=== PATIENT | male | born 1955 | race Caucasian/White ===

== ENCOUNTER → 2016-09-09 08:39 | Outpatient (CLI) | payer MEDICARE, BC | END | disposition home or self-care (01) | LOC: D.RAD 08:39 | DX: M54.2 Cervicalgia (principal) ==

== ENCOUNTER → 2017-02-01 09:09 | Outpatient (CLI) | payer MEDICARE, BC | END | disposition home or self-care (01) | LOC: D.US 09:09 → D.NM 10:00 | DX: R10.11 Right upper quadrant pain (principal); K21.9 Gastro-esophageal reflux disease without esophagitis ==

== ENCOUNTER 2017-04-21 05:51 | Day surgery (SDC) | payer MEDICARE, BC ==
[2017-04-20 09:38] LABS: HEMATOCRIT 44.7 % (42.0-54.0); HEMOGLOBIN 15.5 g/dL (13.5-17.5); MCH 32.7 pg (26.0-34.0); MCHC 34.7 g/dL (31.0-37.0); MCV 94.3 fL (80.0-100.0); MEAN PLATELET VOLUME 9.5 fL (7.4-10.4); RBC 4.74 10x6/uL (4.20-6.10); RDW 13.7 % (11.5-14.5); WBC 9.4 10x3/uL (4.8-10.8)
[2017-04-20 09:52] LABS: CALC OSMOLALITY 279 mosm/kg (275-300); CARBON DIOXIDE 26.6 mmol/L (21.0-32.0); CHLORIDE - SERUM 105 mmol/L (98-107); CREATININE - SERUM 0.9 mg/dL (0.6-1.3); POTASSIUM - SERUM 4.2 mmol/L (3.5-5.1); SODIUM 140 mmol/L (136-145); UREA NITROGEN 16 mg/dL (7-18); eGFR NON AFRICAN AMERICAN > 90 mL/min (90-120)
[2017-04-20 09:54] LABS: GLUCOSE 101 mg/dL (74-106)
[~2017-04-21] VITALS: Ht 175.3 cm; Wt 89.8 kg
[~2017-04-21 05:51] MED LIST: DILANTIN100 MG PO; FLUTICASONE PRO16 GM NASAL; NAPROSYN500 MG PO; NEXIUM40 MG PO; PRINIVIL20 MG PO; PROVENTIL HFA6.7 GM INH; TRAZODONE HCL50 MG PO; ZOCOR40 MG PO; ZOLOFT100 MG PO
[2017-04-21] MEDS ORDERED: AXIRON30 MG/1.5 TP (07:58)
[2017-04-21 08:05] VITALS: BP 114/76; Ht 175.3 cm; Wt 89.8 kg
[2017-04-21] MEDS ORDERED: HYDROCODONE-APA1 TAB PO (10:56)
--- NOTE | 2017-04-21 14:29 | NUR ---
1230 IV DC WITH CATHER TIP INTACT
--- NOTE | 2017-04-26 15:39 | OP ---
PATIENT NAME: DAISY VILLALTA MEDICAL RECORD: [id number] :57 LOCATION:[facility] ADMISSION DATE: SURGEON: MORRIS RILEY MD DATE OF OPERATION: 04/21/2017 PREOPERATIVE DIAGNOSES: 1. Biliary dyskinesia. 2. Cardiac pacemaker in situ. 3. Hypertension. 4. Hyperlipidemia. 5. Asthma. POSTOPERATIVE DIAGNOSES: 1. Biliary dyskinesia. 2. Cardiac pacemaker in situ. 3. Hypertension. 4. Hyperlipidemia. 5. Asthma. PROCEDURE: Laparoscopic cholecystectomy. SURGEON: Morris Riley MD REPORT OF PROCEDURE: The patient's abdomen was prepped and draped in sterile fashion. A cutdown was made on the superior aspect of the umbilicus, 0 Vicryls were placed in the fascia bilaterally and the fascia was incised with a 15-blade. I then bluntly entered the peritoneal cavity and placed a 12-mm Chapis port. Under direct visualization, a 5 mm trocar was placed in the epigastrium and 2 more 5-mm trocars were placed in the right subcostal region. The gallbladder had some inflammatory adhesions present around it and adherent to the anterior abdominal wall. These were all taken down with blunt dissection. At this point, we could visualize the gallbladder and there was no sign of any inflammatory changes. The cystic artery and cystic duct were dissected free and these were clipped proximally and distally and ligated in standard fashion. The gallbladder was taken off the liver bed using electrocautery and placed into the right upper quadrant. Any bleeding from the liver bed was then treated with electrocautery. At this point, the ports and insufflation were then removed and the gallbladder was taken out through the umbilicus. The umbilical fascia was closed with interrupted 0 Vicryls times 3. The wounds were irrigated out with normal saline and infused with 10 mL of 0.25% Marcaine with epinephrine. The skin incisions were all closed with subcutaneous 5-0 Monocryl and dressed appropriately. COMPLICATIONS: None. CONDITION: Stable. ANESTHESIA: General endotracheal and local. BLOOD LOSS: Minimal. TRANSINT:[id number] Voice Confirmation ID: [id number] DOCUMENT ID: [id number] OPERATIVE REPORT [id number] DAISY VILLALTA MORRIS RILEY MD at 1531 CC: SILVANA ROME DO [id number] DICTATION DATE: 04/21/17 1100 CAREER TECHNICAL COUNSELOR: 04/21/[address] [facility] 04/21/17 [place] [id number] [place] [id number]
== END 2017-04-21 13:15 | disposition home or self-care (01) ==
LOC: D.OPS 05:51 → D.PAN 09:30 → D.OPS 13:15
PROVIDERS: Anesthesiology
DX: K82.8 Other specified diseases of gallbladder (principal); Z95.0 Presence of cardiac pacemaker; I10 Essential (primary) hypertension; E78.5 Hyperlipidemia, unspecified; J45.909 Unspecified asthma, uncomplicated; Z01.812 Encounter for preprocedural laboratory examination

== ENCOUNTER → 2017-04-29 10:11 | Outpatient (CLI) | payer MEDICARE, BC ==
[2017-04-21 08:05] VITALS: BMI 29.3
[~2017-04-29 10:11] MED LIST changes: +AXIRON30 MG/1.5 TP; +HYDROCODONE-APA1 TAB PO
== END | disposition home or self-care (01) ==
LOC: D.CT 10:00
DX: J32.9 Chronic sinusitis, unspecified (principal)

== ENCOUNTER → 2018-01-04 10:04 | Outpatient (CLI) | payer MEDICARE, BC ==
[2017-04-21 08:05] VITALS: BMI 29.3
== END | disposition home or self-care (01) ==
LOC: D.RAD 10:04
DX: M25.512 Pain in left shoulder (principal)

== ENCOUNTER 2018-03-18 09:01 | Emergency (ER) | payer MEDICARE, BC ==
[~2018-03-18] VITALS: Ht 175.3 cm; Wt 89.5 kg
[2018-03-18 09:04] VITALS: Ht 175.3 cm; Wt 89.5 kg
[2018-03-18] MEDS ORDERED: ELAVIL25 MG PO (09:06)
[2018-03-18] MEDS ORDERED: ZIPSOR25 MG PO (09:06)
[2018-03-18] MEDS ORDERED: BUSPAR5 MG PO (09:07)
[2018-03-18] MEDS ORDERED: RANITIDINE HCL150 M1 PO (09:08)
[2018-03-18] MEDS ORDERED: DILANTIN100 MG PO (09:09)
[2018-03-18 09:39] LABS: BASOPHILS 0.4 % (0-2); HEMATOCRIT 47.4 % (42.0-54.0); HEMOGLOBIN 16.7 g/dL (13.5-17.5); IMMATURE GRANULOCYTES 0.6 % (0-5); LYMPHOCYTES 28.7 % (15-50); MCH 33.4 pg (26.0-34.0); MCHC 35.2 g/dL (31.0-37.0); MCV 94.8 fL (80.0-100.0); MEAN PLATELET VOLUME 9.7 fL (7.4-10.4); MONOCYTES 6.5 % (2-11); NEUTROPHILS 61.8 % (40-80); PLATELET COUNT 288 10x3/uL (130-400); WBC 9.3 10x3/uL (4.8-10.8)
[2018-03-18 09:56] LABS: APTT 29.4 SECONDS (22.8-39.4); INR 0.98 (0.85-1.17); PROTIME 12.6 SECONDS (11.6-15.0)
[2018-03-18 10:01] LABS: ALBUMIN 4.1 g/dL (3.4-5.0); ALKALINE PHOSPHATASE 60 U/L (46-116); ALT (SGPT) 58 U/L (10-68); BILIRUBIN - TOTAL 0.34 mg/dL (0.2-1.3); CALC OSMOLALITY 278 mosm/kg (275-300); CALCIUM 9.5 mg/dL (8.5-10.1); CARBON DIOXIDE 24.4 mmol/L (21.0-32.0); CHLORIDE - SERUM 103 mmol/L (98-107); CREATININE - SERUM 0.9 mg/dL (0.6-1.3); GLUCOSE 126 mg/dL (74-106); PROTEIN - SERUM 7.6 g/dL (6.4-8.2); SODIUM 138 mmol/L (136-145); UREA NITROGEN 14 mg/dL (7-18); eGFR NON AFRICAN AMERICAN > 90 mL/min (90-120)
[2018-03-18 10:12] LABS: CKMB 1.4 U/L (0.0-3.6); CREATINE KINASE 152 UL (21-232); MAGNESIUM - SERUM 2.2 mg/dL (1.8-2.4)
[2018-03-18 10:13] LABS: TROPONIN-I < 0.017 ng/mL (0.000-0.060)
[2018-03-18] MEDS ORDERED: NORCO 10-325 TA1 TAB PO (13:14)
[2018-03-18] MEDS ORDERED: PREDNISONE20 MG PO (13:14)
[2018-03-18 13:45] VITALS: BP 153/101
== END 2018-03-18 13:46 | disposition home or self-care (01) ==
LOC: D.ER 09:01
PROVIDERS: Family Medicine
DX: M50.30 Other cervical disc degeneration, unspecified cervical region (principal); I10 Essential (primary) hypertension; G40.909 Epilepsy, unspecified, not intractable, without status epilepticus; K21.9 Gastro-esophageal reflux disease without esophagitis; Z95.0 Presence of cardiac pacemaker

== ENCOUNTER 2018-04-21 05:20 | Day surgery (SDC) | payer MEDICARE, BC ==
[2018-04-20 11:35] LABS: HEMATOCRIT 44.1 % (42.0-54.0); HEMOGLOBIN 15.5 g/dL (13.5-17.5); MCH 32.8 pg (26.0-34.0); MCHC 35.1 g/dL (31.0-37.0); MCV 93.2 fL (80.0-100.0); MEAN PLATELET VOLUME 9.4 fL (7.4-10.4); RBC 4.73 10x6/uL (4.20-6.10); RDW 13.3 % (11.5-14.5); WBC 8.5 10x3/uL (4.8-10.8)
[~2018-04-21] VITALS: Ht 175.3 cm; Wt 89.4 kg
--- NOTE | ~2018-04-21 | OP ---
PATIENT NAME: DAISY DUFF MEDICAL RECORD: [id number] :57 LOCATION:[facility] ADMISSION DATE: SURGEON: PILI ALEXANDRE DO DATE OF OPERATION: 04/21/2018 PROCEDURE PERFORMED: Open left carpal tunnel release. PREOPERATIVE DIAGNOSIS: Carpal tunnel syndrome, left upper extremity. POSTOPERATIVE DIAGNOSIS: Carpal tunnel syndrome, left upper extremity. INDICATIONS: Mr. Duff is a 63-year-old male who has had bilateral hand numbness for quite some time, it has been waking him up at night and he was going to sleep when he was talking on the phone. He has been wearing night splints for quite some time to no avail. This did not help him and he decided he wanted something done. He has had nerve conduction study in the past that showed moderate carpal tunnel syndrome, median nerve compression at the wrist. I informed him of the risks and benefits of the procedure including infection, bleeding, damage to nerves and vessels, permanent loss of feeling in the median nerve distribution and he was okay with that and also the possibility we may have to open. He was scheduled for endoscopic. He was okay with those risks and benefits and consented to the procedure. SURGEON: Pili Alexandre DO DESCRIPTION OF PROCEDURE: The patient was taken to the operative suite, laid in supine position, given general anesthetic and 2 grams of Ancef. The left upper extremity was prepped and draped in sterile fashion. A timeout was performed and everyone was in agreement with the correct side, site, patient and procedure. Once that was done, the incision was marked out over the wrist crease for the endoscopic port. An incision was made with 15 blade scalpel and immediately encountered muscle belly. Muscle belly was dissected through bluntly with Ragnells and down to the carpal tunnel. The carpal tunnel was opened and the sheath of the carpal tunnel was dilated and the sheath was put into place. Once the sheath was put into place, the camera was put in and did not see a good visual of the transverse carpal ligament, it had quite a bit of mucousy looking tissue in it. This was attempted to be cleaned off and could not be due to the fact it is poor visualization and encountering the muscle belly, decided to convert to an open carpal tunnel. The tourniquet was inflated prior to the incision to 250 mmHg. The left upper extremity was esmarched as well prior to this and was up for 19 minutes total. Once the endoscopic carpal tunnel was abandoned, incisions began in the palm along the fourth ray and careful dissection was made down to the transverse carpal ligament itself. A Heiss retractor was used to retract the skin and fat pad all the way and a 15 blade scalpel was used to cut through the transverse carpal ligament very carefully. Then, a pediatric nasal speculum was used to open up more and the whole transverse carpal ligament was transected both distally and proximally given a good release and the median nerve was seen to bifurcate there, which may have been some of the difficulty dealing. The tourniquet was then let down. The site was injected with 0.25% Marcaine without epinephrine. Both the endoscopic incision and the open incision, 10 mL was then injected in all together. Any bleeding was coagulated with bipolar that time and then the each site was closed with 4-0 nylon in a horizontal mattress fashion. The arm was cleaned and the tourniquet had been let down 19 minutes and then Adaptic, 4 x 4's, Kerlix, and Coban was lightly wrapped on the hand with 4 x 4s in between OPERATIVE REPORT [id number] DAISY DUFF the fingers. The patient was awakened and taken to recovery in stable condition. Blood loss was minimal. TRANSINT:[id number] Voice Confirmation ID: [id number] DOCUMENT ID: [id number] PILI ALEXANDRE DO at 1112 CC: [id number] DICTATION DATE: 04/21/18 08 CANDY MAKER HELPER: 04/21/18 0944 [facility] [address] [place] [id number]
[~2018-04-21 05:20] MED LIST changes: +BUSPAR5 MG PO; +ELAVIL25 MG PO; +NORCO 10-325 TA1 TAB PO; +PREDNISONE20 MG PO; +RANITIDINE HCL150 M1 PO; +ZIPSOR25 MG PO
[2018-04-21] MEDS ORDERED: ELAVIL25 MG (05:51)
[2018-04-21] MEDS ORDERED: PROAIR (05:52)
[2018-04-21 06:03] VITALS: BP 136/86; Ht 175.3 cm; Wt 89.4 kg
[2018-04-21] MEDS ORDERED: DURICEF500 MG PO (07:57)
[2018-04-21] MEDS ORDERED: ZOFRAN ODT4 MG/UDTAB PO (08:20)
[2018-04-21] MEDS ORDERED: DILAUDID2 MG PO (08:20)
== END 2018-04-21 08:55 | disposition home or self-care (01) ==
LOC: D.OPS 05:20
PROVIDERS: Anesthesiology
DX: G56.02 Carpal tunnel syndrome, left upper limb (principal); Z01.812 Encounter for preprocedural laboratory examination

== ENCOUNTER 2018-06-02 10:43 | Day surgery (SDC) | payer MEDICARE, BC ==
[~2018-06-02] VITALS: Ht 175.3 cm; Wt 89.4 kg
[2018-06-02 07:50] LABS: HEMATOCRIT 41.2 % (42.0-54.0); HEMOGLOBIN 13.9 g/dL (13.5-17.5); MCH 32.2 pg (26.0-34.0); MCHC 33.7 g/dL (31.0-37.0); MCV 95.4 fL (80.0-100.0); MEAN PLATELET VOLUME 9.4 fL (7.4-10.4); RBC 4.32 10x6/uL (4.20-6.10); RDW 13.3 % (11.5-14.5); WBC 7.8 10x3/uL (4.8-10.8)
[2018-06-02 08:16] VITALS: BP 113/67; Ht 175.3 cm; Wt 89.4 kg
[~2018-06-02 10:43] MED LIST changes: +BAYER CHEWABLE81 MG PO; +DILAUDID2 MG PO; +DURICEF500 MG PO; +ELAVIL25 MG; +PROAIR; +ZOFRAN ODT4 MG/UDTAB PO
--- NOTE | 2018-06-02 11:23 | OP ---
PATIENT NAME: DAISY VILLALTA MEDICAL RECORD: [id number] :57 LOCATION:[facility] ADMISSION DATE: SURGEON: VIDAL ALEXANDRE DO DATE OF OPERATION: 06/02/2018 PROCEDURE PERFORMED: Right carpal tunnel release. PREOPERATIVE DIAGNOSIS: Right carpal tunnel syndrome. POSTOPERATIVE DIAGNOSIS: Right carpal tunnel syndrome. INDICATIONS: Omega is a 63-year-old male who had bilateral carpal tunnel syndrome noted on nerve conduction study. He was tired of awakening up at night and when he was talking on the phone going numb all the time. He had the left one done a month ago or so and one on the right one done. This has bothered him waking him up. I informed him of the risks and benefits of the procedure. We are going to start an endoscopic like we did on the on the left. On the left when he had a muscle belly, in the way and for vision of the scope, I told him if we had the same thing on this one, we would open it too. He was okay with that and signed the consent. He was aware of the risks and benefits including infection, bleeding, damage to nerve and vessels, need for further surgery. SURGEON: Vidal Alexandre DO DESCRIPTION OF PROCEDURE: The patient was taken to the operating suite, laid in supine position, given general anesthetic, given 2 grams of Ancef preoperatively. The right upper extremity was prepped and draped in sterile fashion. A timeout was performed. Everyone was agreeance with the correct side, site, patient and procedure. The right upper extremity was exsanguinated with an Esmarch. Tourniquet was inflated to 250 mmHg and was up to 14 minutes. The Esmarch was removed. Incision began at the proximal wrist crease. Careful dissection was made down to the carpal tunnel itself. The forearm fascia was released from distal to proximal to open up the space there. Dissection was then made distally. The carpal tunnel was entered with the dilators and then the sheath. Once the sheath was entered, the camera was entered. Transverse carpal ligament was seen, it was probed and rasped, and the blade was brought in to make the initial cut and then I saw muscle belly, I abandoned that at that time and then opened due to the fact I did not see fat herniated, but due to muscle belly and fear of cutting the nerve in that muscle belly. We opened then in the palm, in line with the ring finger, in the palm, in the crease with a 15 blade scalpel. Dissection was made down to the transverse carpal ligament and there was a muscle belly on top of it. This was very carefully scraped off. There was no nerve seen and the transverse carpal ligament was transected with a #15 blade scalpel and I completely opened up the carpal tunnel. The tourniquet was then let down at 14 minutes. The site was injected with 0.5% Marcaine with epinephrine 10 mL of it and then bipolar was used to coagulate any vessels bleeding at that time or any oozing, and the skin was closed with 5-0 nylon in a horizontal mattress and simple interrupted fashion at both sites. Adaptic, 4 x 4's, Kerlix, and Coban was lightly wrapped on the hand. The patient was awakened and taken to recovery in stable condition. BLOOD LOSS: Minimal. COMPLICATIONS: None. OPERATIVE REPORT [id number] DAISY VILLALTA TRANSINT:[id number] Voice Confirmation ID: [id number] DOCUMENT ID: [id number] VIDAL ALEXANDRE DO at 1123 CC: [id number] DICTATION DATE: 06/02/18 1031 FACILITIES LOCATOR: 06/02/18 1117 [facility] [address] [place] [address]
== END 2018-06-02 12:20 | disposition home or self-care (01) ==
LOC: D.OPS 10:43
PROVIDERS: Anesthesiology
DX: G56.01 Carpal tunnel syndrome, right upper limb (principal)

== ENCOUNTER → 2018-07-14 08:21 | Outpatient (CLI) | payer MEDICARE, BC ==
[2018-06-02 08:16] VITALS: BMI 29.1
== END | disposition home or self-care (01) ==
LOC: D.CT 08:21
PROVIDERS: ATTEND Neurological Surgery
DX: M54.12 Radiculopathy, cervical region (principal)

== ENCOUNTER 2018-08-31 05:20 | Day surgery (SDC) | payer MEDICARE, BC ==
[2018-08-30 09:02] LABS: HEMOGLOBIN 15.6 g/dL (13.5-17.5); MCH 33.1 pg (26.0-34.0); MCHC 35.5 g/dL (31.0-37.0); MCV 93.2 fL (80.0-100.0); MEAN PLATELET VOLUME 9.4 fL (7.4-10.4); RBC 4.72 10x6/uL (4.20-6.10); RDW 14.1 % (11.5-14.5); WBC 11.6 10x3/uL (4.8-10.8)
[~2018-08-31] VITALS: Ht 175.3 cm; Wt 92.5 kg
[2018-08-31] VITALS (17 sets, daily range): BP systolic 104–176; BP diastolic 67–119; Ht 175.3 cm; Wt 92.5 kg
--- NOTE | 2018-08-31 11:58 | NUR ---
RECEIVED FROM RECOVERY ROOM. AWAKE AND ALERT SKIN WARM AND DRY. POSTERIOR NECK DRESSING DRY AND INTACT. DENIES ANY NUMBNESS OR TINGLING. AL EXTREMITIES STRENGTH STRONG. IV RIGHT WRIST INFUSING LR AT 50 ML HOUR. SITE WITHOUT REDNESS OR SWELLING. MONITOR SR. NO DISTRESS. OXYGEN AT 2 LITERS PER NC.
--- NOTE | 2018-08-31 12:30 | NUR ---
IN ROOM. ICE WATER GIVEN TO PATIENT.
--- NOTE | 2018-08-31 14:00 | NUR ---
NO NAUSEA WITH ICE WATER. HAND AVIATION TACTICAL READINESS OFFICER EQUAL AND STRONG DENIES ANY NUMBNESS OR TINGLING. COFFEE GIVEN AND APPLE JUICE GIVEN TO PATIENT. ALERT AND VERY TALKATIVE. NO DISTRESS. DRESSING DRY AND INTACT
--- NOTE | 2018-08-31 16:00 | NUR ---
HURTS HIS NECK TO LOOK SIDE WAYS OR LAUGH. PAIN DID VERY LITTLE.
--- NOTE | 2018-08-31 17:00 | NUR ---
MORPHINE TOOK THE EDGE OFF HIS PAIN. CLEAR LIQUID DIET SERVED. AT BEDSIDE. NO DISTRESS. HANDS HOUSING MANAGEMENT OFFICER EQUAL NO NUMBNESS OR TINGLING. AWAKE AND ALERT.
--- NOTE | 2018-08-31 18:00 | NUR ---
SMALL DARK BROWN STOOL FORMED DALE CARE SIMON CARE DONE. TURNED FROM SIDE TO SIDE CLEAN LINEN APPLIED. BLOOD PRESSURE DROPPED INTO 50'S SYSTOLIC. NEOSYNPHERINE INCREASED TO 40 MCG/MIN.DIPRIVAN TURNED DOWN TO 15 MCG/KG/MIN
--- NOTE | 2018-08-31 18:36 | NUR ---
PAIN IS OK IF HE DOES NOT MOVE. BLOOD PRESSURE INPROVED WITH PO MEDS 156/96 AWAKE AND ALERT
--- NOTE | 2018-08-31 20:00 | NUR ---
REC'D AWAKE, ALERT, TALKATIVE. INITIAL ASSESSMENT COMPLETED AND RECORDED PER FLOW SHEET. DRSG TO BACK OF NECK NOTED TO HAVE DRIED BLOOD BUT NO FRESH BLEEDING NOTED. LUNGS CLEAR, NOTE LEFT SIDE PACEMAKER. BUT SHOWING SR ON MONITOR. USING URINAL, VOIDING CLEAR YELLOW URINE, APPROX [address] LUZ. C/O PAIN IN NECK AT A 10, MEDICATED WITH MORPHINE 2 MG SIVP. PPP X4. WILL CONT TO MONITOR.
--- NOTE | 2018-08-31 22:30 | NUR ---
CONT W/O CHANGE, MEDICATED WITH METHOCARBOMOL @ 2005, WELL ANOTHER DOSE OF MORPHINE @ 2215 FOR A PAIN LEVEL OF 10. WILL MONITOR FOR EFFECT. VSS, B/P DOWN SLIGHTLY.
[2018-09-01] VITALS (11 sets, daily range): BP systolic 78–159; BP diastolic 59–100
--- NOTE | 2018-09-01 01:00 | NUR ---
RECEIVED PATIENT FROM RN, MIKIE X3. COMPLAINS OF PAIN, PRN PAIN MED GIVEN PER MD ORDERS, SEE MAR. LOMBARDO. NECK IS STIFF AND PATIENT REFUSES TO MOVE AT THIS TIME. ENCOURAGED TO COUGH, TURN AND DEEP BREATHE. LS CTA. HR SR ON MONITOR, BP STABLE 150S TO 160S SYSTOLIC. RIGHT PIV PATENT WITH D5 1/2NS @ 50ML/HR. ACTIVE BS X4. VOIDS IN URINAL. SKIN W/D/I. PATIENT PLEASANT AND COOPERATIVE. WILL MONITOR CLOSELY THROUGH OUT THE NIGHT.
--- NOTE | 2018-09-01 03:00 | NUR ---
REASSESSMENT COMPLETED, SEE FLOWSHEET. VSS. PATIENT APPEARS TO BE RESTING COMFORTABLY. WILL CTM.
--- NOTE | 2018-09-01 05:00 | NUR ---
NO ACUTE CHANGES NOTED. VSS. PATIENT APPEARS TO BE RESTING COMFORTABLY. WILL CTM.
--- NOTE | 2018-09-01 07:32 | NUR ---
0700 RECIEVED PT ALERT AND ORIENTED ON ROOM AIR VSS PPM IN PLACE BUT NOT PACING HR 80S NSR, POSTERIOR NECK INCISION DRESSING IN PLACE, CDI, PT COMPLAINING OF PAIN MOSTLY IN NECK FROM INCISION BUT ALSO CHRONIC BACK PAIN, PRN NORCO ADMINISTERED PER EMAR, R WRIST PIV WITH D5 1/2 NS 50ML/HR, CONTINENT, CALL LIGHT WITHIN REACH, BED ALARM ON, NO NEEDS NOTED
--- NOTE | 2018-09-01 09:13 | NUR ---
Nutrition Follow Up: Reviewed chart Regular diet with good po intake Answered pt questions about OA. There is no specific nutrition therapy recommendations for OA. RD following
--- NOTE | 2018-09-01 11:43 | NUR ---
0900 PT ATE 50% BREAKFAST 1130 REPORT GIVEN TO Michael GUZMAN RN
--- NOTE | 2018-09-01 13:43 | NUR ---
DISCHARGE INSTRUCTIONS REVIEWED WITH PT AND SPOUSE. NORCO PRESCRIPTION GIVEN TO PT. COPY PLACED IN CHART. R-FOREARM PIV DC'D WITH CATHETER TIP INTACT. WHEELED OUT TO PERSONAL VEHICLE. PERSONAL BELONGINGS SENT WITH PT.
== END 2018-09-01 13:45 | disposition home or self-care (01) ==
LOC: D.ICU 05:20 → D.OPS 05:20 → D.SDCHOLD 05:20 → EDSTATUS 07:30 → D.ICU 12:00 → D.SDCHOLD 12:00 → D.OPS 09-01 13:45 → D.ICU 09-01 13:45
PROVIDERS: Anesthesiology; ATTEND Neurological Surgery
DX: M48.02 Spinal stenosis, cervical region (principal)

== ENCOUNTER → 2019-02-09 13:29 | Outpatient (CLI) | payer MEDICARE, BC ==
[2018-08-31 13:25] VITALS: BMI 29.8
--- NOTE | 2019-02-09 14:36 | NUR ---
LEFT SHOULDER ARTHROGRAM WAS PERFORMED W DR SEGUNDO Wright A TIME OUT AT 1417HRS
== END | disposition home or self-care (01) ==
LOC: D.RAD 13:29
PROVIDERS: ATTEND Orthopaedic Surgery
DX: S43.432A Superior glenoid labrum lesion of left shoulder, initial encounter (principal)